=== PATIENT | female | born 1980 | race Two or more races ===

== ENCOUNTER 2018-11-22 18:36 | Emergency (ER) | payer SELFPAY ==
[~2018-11-22] VITALS: Ht 162.6 cm; Wt 72.6 kg
--- NOTE | 2018-11-22 18:41 | NUR ---
REJI RA 86 FOR ALTERED BEHAVIOR.
[2018-11-22] MEDS ORDERED: ONDANSETRON 4 MG/2 ML VIAL ONE (18:59)
[2018-11-22] MEDS ORDERED: HALOPERIDOL LACTATE 5 MG/1 ML VIAL ONE (18:59)
[2018-11-22] MEDS: HALOPERIDOL LACTATE 5 MG/1 ML VIAL IV ONE (19:01)
[2018-11-22] MEDS: ONDANSETRON 4 MG/2 ML VIAL IV ONE (19:01)
[2018-11-22] MEDS: IV NORMAL SALINE 1000 ML BAG IV ONE (19:01)
--- NOTE | 2018-11-22 19:02 | NUR ---
PATIENT IS ALTERNATING BETWEEN BEING CALM AND BEING AGGRESSIVE, TRYING TO KICK AND SCREAM. SHE STATES SHE DRANK HENESSEY. NOTIFIED.
[2018-11-22 19:04] LABS: BASOPHILS % (AUTO) 0.6 % (0.0-2.0); EOSINOPHILS % (AUTO) 0.5 % (0.0-7.0); HEMATOCRIT 39.8 % (31.2-41.9); HEMOGLOBIN 13.2 g/dL (10.9-14.3); LYMPHOCYTES # (AUTO) 2.3 K/uL (20.0-40.0); LYMPHOCYTES % (AUTO) 58.6 % (20.5-51.5); MEAN CORPUSCULAR HEMOGLOBIN 26.8 uug (24.7-32.8); MEAN CORPUSCULAR HGB CONC 33 g/dL (32.3-35.6); MEAN CORPUSCULAR VOLUME 80.7 fL (75.5-95.3); MONOCYTES # (AUTO) 0.3 K/uL (2.0-10.0); MONOCYTES % (AUTO) 6.6 % (0.0-11.0); NEUTROPHILS # (AUTO) 1.3 K/uL (1.8-8.9); NEUTROPHILS % (AUTO) 33.7 % (38.5-71.5); PLATELET COUNT (AUTO) 204 K/uL (179-408); RED BLOOD CELL COUNT(AUTO) 4.93 MIL/uL (3.63-4.92); WHITE BLOOD COUNT (AUTO) 3.9 K/uL (3.8-11.8)
[2018-11-22 19:13] LABS: CARBON DIOXIDE 20 mmol/L (21-32); CHLORIDE 110 mmol/L (98-107); CREATININE 0.7 mg/dL (0.6-1.3); GLUCOSE 120 mg/dL (74-106); POTASSIUM 3.4 mmol/L (3.5-5.1); UREA NITROGEN, BLOOD 9 mg/dL (7-18)
--- NOTE | 2018-11-22 19:16 | NUR ---
HAND OFF REPORT GIVEN TO JOHANNA CARRIZALES
[2018-11-22 19:18] LABS: ALANINE AMINOTRANSFERASE 24 U/L (14-59); ALKALINE PHOSPHATASE 60 U/L (50-136); ASPARTATE AMINOTRANSFERASE 14 U/L (15-37); BILIRUBIN,DIRECT 0.1 mg/dL (0.0-0.2); BILIRUBIN,TOTAL 0.3 mg/dL (0.2-1.0); TOTAL PROTEIN, SERUM 8.4 g/dL (6.4-8.2)
[2018-11-22 19:19] LABS: ACETAMINOPHEN < 2.0 ug/mL (10-30)
[2018-11-22 19:23] LABS: *URINE HCG, QUAL NEGATIVE (NEGATIVE)
[2018-11-22 19:26] LABS: THYROID STIMULATING HORMONE 2.569 mIU/mL (0.358-3.740)
[2018-11-22 19:27] LABS: ETHANOL 369 MG/DL (0-0)
--- NOTE | 2018-11-22 19:30 | NUR ---
PATIENT SLEEPING ON GURNY WITH NO DISTRESS NOTED
[2018-11-22 19:34] LABS: *AMPHETAMINE, URINE NEGATIVE (NEGATIVE); *BARBITURATE, URINE NEGATIVE (NEGATIVE); *CANNABINOID, URINE NEGATIVE (NEGATIVE); *COCCAINE, URINE NEGATIVE (NEGATIVE); *OPIATE, URINE NEGATIVE (NEGATIVE); *PHENCYCLIDINE SCREEN,URINE NEGATIVE (NEGATIVE)
[2018-11-22] MEDS ORDERED: IV D5W-0.45% NS +20 KCL 1,000 ML IV ONE (19:45)
--- NOTE | 2018-11-22 19:56 | NUR ---
PATIENT OUT OF UNIT FOR CT SCAN VIA GURNY
--- NOTE | 2018-11-22 20:11 | NUR ---
PATIENT BACK FROM CT SCAN WITH NO DISTRESS NOTED
[2018-11-22] MEDS: IV D5W-0.45% NS +20 KCL 1,000 ML IV ONE (20:12)
--- NOTE | 2018-11-22 22:54 | NUR ---
PATIENT SLEEPING WITH NO DISTRESS NOTED
--- NOTE | 2018-11-23 01:25 | NUR ---
PATIENT ABLE TO AMBULQATE WITH STEADY GAIT TO RESTROOM. SPEAKING WITH CLEAR SPEECH. A/OX3. 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 ETA IS 0500 TODAY
--- NOTE | 2018-11-23 01:39 | NUR ---
IV removed. Catheter intact and site benign. Pressure and 4x4 gauze applied to site. No bleeding noted.
--- NOTE | 2018-11-23 04:35 | NUR ---
PATIENT AWAKE. A/OX3. INTERACTING WELL WITH STAFF MEMBER. AMBULATING WITH STEADY GAIT. ABLE TO TOLERATE PO FLUIDS. NO DISTRESS NOTED.
[2018-11-23 05:18] VITALS: BP 110/60
== END 2018-11-23 05:19 | disposition home or self-care (01) ==
LOC: ER 18:39
DX: F10.129 Alcohol abuse with intoxication, unspecified (principal); Y90.8 Blood alcohol level of 240 mg/100 ml or more
CPT/HCPCS: 36415; 70450; 80048; 80076; 80307; 84443; 84703; 85025; 93005; 96365; 96366; 96375; 99284; G0480 ×2; G0481; J1630; J2405; J3490; A4663; C1758; J7030